=== PATIENT | female | born 1995 | race Caucasian/White ===

== ENCOUNTER → 2018-08-20 | Day surgery (SDC) | payer OTHER ==
[~2018-08-20] MED LIST: ACETAMINOPHEN 500 MG TAB PO PRN; DEXAMETHASONE 4 MG/ML VIAL ONE; DOXYCYCLINE HYCLATE 100 MG CAP/TAB PO ONE; KETOROLAC 30 MG/1 ML SDV ONE; LR 1,000 ML IV ONE; LR 500 ML IV PRN; MEPERIDINE 25 MG/0.5 ML AMP IVP PRN; METOCLOPRAMIDE 10 MG/2 ML VIAL IVP PRN; MIDAZOLAM 2 MG/2 ML VIAL IVP ONE; NALOXONE HCL 0.4 MG/ML INJ IVP PRN; ONDANSETRON 4 MG/2 ML VIAL ONE; PROMETHAZINE HCL 25 MG/ML INJ IVP PRN; PROPOFOL 200 MG/20 ML VIAL ONE; PROPOFOL/EMULSION 500 MG/50 ML BOTTLE IV ONE; fentaNYL 100 MCG/2 ML INJ IVP PRN; fentaNYL 100 MCG/2 ML INJ ONE; oxyCODONE IR 5 MG TAB PO PRN
--- NOTE | 2018-08-20 07:28 | PDANEPAE ---
ANE History of Present Illness Missed AB- 9 weeks ANE Past Medical History - Cardiovascular History Hx Hypertension: No Hx Arrhythmias: No Hx Chest Pain: No Hx Coronary Artery / Peripheral Vascular Disease: No Hx CHF / Valvular Disease: No Hx Palpitations: No - Pulmonary History Hx COPD: No Hx Asthma/Reactive Airway Disease: No Hx Recent Upper Respiratory Infection: No Hx Oxygen in Use at Home: No Hx Sleep Apnea: No Pulmonary History Comment: + smoking - 3 pack year hx - Neurologic History Hx Cerebrovascular Accident: No Hx Seizures: No Hx Dementia: No - Endocrine History Hx Diabetes: No Hypothyroid: No Hyperthyroid: No Obesity: no - Renal History Hx Renal Disorders: No - Liver History Hx Hepatic Disorders: No ANE Review of Systems Review of Systems: - Exercise capacity Exercise capacity: >=4 METS ANE Patient History - Allergies Allergies/Adverse Reactions: No Known Allergies Allergy (Verified 08/20/18 06:45) - NPO status NPO Since - Liquids (Date): 08/20/18 NPO Since - Liquids (Time): 01:30 NPO Since - Solids (Date): 08/19/18 NPO Since - Solids (Time): 19:30 - Smoking Hx Smoking Status: Former smoker ANE Labs/Vital Signs - Vital Signs Blood Pressure: 127/77 Heart Rate: 91 Respiratory Rate: 16 O2 Sat (%): 97 Height: 165.1 cm Weight: 70.76 kg ANE Physical Exam - Airway Neck exam: FROM Mallampati Score: Class 2 Mouth exam: normal dental/mouth exam - Pulmonary Pulmonary: no respiratory distress - Cardiovascular Cardiovascular: regular rate and rhythym - ASA Status ASA Status: II ANE Anesthesia Plan Anesthesia Plan: GA with mask
--- NOTE | 2018-08-20 07:41 | PDGENHP ---
History and Physical - Chief Complaint missed AB - History of Present Illness 23 at 9w2d by LMP but no pole seen, and should be over 9 weeks, minimum 8 weeks as had pos preg test 07/22/18. This was dxed by US at the [facility] office on Monday. Over the weekend she had some bleeding and passing of clots. History Information - Allergies/Home Medication List Allergies/Adverse Reactions: No Known Allergies Allergy (Verified 08/20/18 06:45) I have personally reviewed and updated: family history, medical history, social history, surgical history Past Medical History: hx of seizure 3 yr ago, eval was neg, none since. Hosp for lung infection at age 8, had a central line and chest tube it sounds like. - Surgical History Additional surgical history: wisdom teeth. central line, chest tube age 8 - Family History Positive for: non-pertinent (quit with pos preg test) - Social History Smoking Status: Former smoker Alcohol Use: None Drug Use: Marijuana (stopped with pos preg test) Review of Systems Review of Systems: ROS: 10pt was reviewed & negative except for what was stated in HPI & below Physical Exam Physical Exam: brief TV US done - gest sac present in uterus with yolk sac, but no pole evident Temp Pulse Resp BP Pulse Ox 37.1 C 91 16 127/77 H 97 08/20/18 06:45 08/20/18 07:28 08/20/18 07:28 08/20/18 07:28 08/20/18 07:28 Constitutional: no apparent distress, appears nourished Eyes: PERRL, anicteric sclera, EOMI Ears, Nose, Mouth, Throat: moist mucous membranes, hearing normal, ears appear normal Cardiovascular: regular rate and rhythym, no murmur, rub, or gallop Respiratory: no respiratory distress, no rales or rhonchi Gastrointestinal: normoactive bowel sounds, soft, non-tender abdomen, no palpable masses Genitourinary: no bladder fullness Skin: warm, normal color, mottled Musculoskeletal: full muscle strength Neurologic: AAOx3 Psychiatric: interacting appropriately, not anxious Lymph, Heme, Immunologic: no cervical LAD Lab Data & Imaging Review Patient ABO/Rh A POSITIVE 08/20/18 06:43 Rh Phenotype Cancelled 08/20/18 06:43 Antibody Screen NEGATIVE 08/20/18 06:43 A1 Cell (IDAT) Cancelled 08/20/18 06:43 B Cell (IDAT) Cancelled 08/20/18 06:43 Bld Prod Order Rhogam Cancelled 08/20/18 06:43 Draw and Hold Cancelled 08/20/18 06:43 Assessment & Plan Assessment: 23 G1 with MAB - appears to be blighted ovum. Should be > 8 wk minimum. A pos Plan - Written informed consent obtained. Will proceed with suction D&C. po Doxy given. Brenda Styles MD, FACOG [facility]
--- NOTE | 2018-08-20 08:45 | POSTOPPROG ---
Post Op Note Date of Operation: 08/20/18 Surgeon: Brenda Styles Anesthesiologist: RICA Staton Anesthesia: GET(General Endotracheal) Pre-op Diagnosis: missed Post-op Diagnosis: same Indication: desires surgical management of missed Procedure: suction D&C Findings: uterus sounded to 9 cm, at end of procedure, thin endometrial lining Inf/Abcess present in the surg proc area at time of surgery?: No EBL: 50-100 Total fluids administered: 1400 Complications: none Specimen(s): products of conception
--- NOTE | 2018-08-20 09:28 | POSTANESTH ---
Post Anesthetic Evaluation Cardiovascular Status: Normal, Stable Respiratory Status: Normal, Stable Level of Consciousness/Mental Status: Can Participate in Eval Pain Control: Adequate, Prn Tx Ordered Nausea/Vomiting Control: Adequate, Prn Tx Ordered Complications Possibly Related to Anesthesia: None Noted
--- NOTE | 2018-08-20 09:31 | GOP ---
DATE OF OPERATION: 08/20/2018 SURGEON: Brenda Styles MD ANESTHESIA: General. ANESTHESIOLOGIST: Elizabeth Hardy MD. PREOPERATIVE DIAGNOSIS: Missed . POSTOPERATIVE DIAGNOSIS: Missed . PROCEDURE PERFORMED: Suction dilation and curettage. FINDINGS: Mid position uterus c/w 8 weeks gestation. At end of procedure, transvaginal US revealed en empty uterus with a thin endometrial stripe. products of conception consistent with 8-9 weeks gestation in volume. INDICATIONS: 23-year-old 1, para 0 female who is at over 9 weeks gestation by LMP, but less than 6 weeks gestation by gestational sac size with an empty gestational sac with only a yolk sac and no pole. Blood type is A positive. DESCRIPTION OF PROCEDURE: Written informed consent was obtained from the patient. She was given 100 mg of doxycycline p.o. immediately before being taken back to the operating room. She was taken to the operating room and placed in the dorsal supine position. When general anesthesia was deemed adequate, she was placed in the modified dorsal lithotomy position using the blue fin stirrups. She had voided prior to coming to the operating room. Her abdomen, perineum, and vagina were sterilely prepared and draped in a standard fashion. A time-out was performed. An examination under anesthesia was performed. A speculum was inserted. Tenaculum was placed on the anterior lip of the cervix. The uterus sounded to 9 cm. The size 8 suction curette was inserted and suction curettage was performed. One global pass with a sharp curette was performed. Suction curettage was performed again noting uterine cry around the cavity. The tenaculum was removed from the anterior lip of the cervix. Hemostasis was obtained with direct pressure. A brief transvaginal ultrasound was performed and revealed an empty uterus with thin endometrial stripe. The patient was awakened and taken to the recovery room in stable condition. Sponge, lap, and needle counts were correct x2. /[id number]/MODL MTDD
[2018-08-20 09:49] VITALS: BP 110/76
== END | disposition home or self-care (01) ==
LOC: FOBOP 06:17
PROVIDERS: ATTEND Hospitalist
PROC: 10D17ZZ Extraction of Products of Conception, Retained, Via Natural or Artificial Opening (ICD-10-PCS; principal; 2018-08-20)
DX: O02.1 Missed abortion (principal)
CPT/HCPCS: J1100; J1885; J2250; J2405; J2704; J3010